=== PATIENT | male | born 1955 | race Asian ===

== ENCOUNTER 2016-11-07 11:17 | Outpatient (CLI) | payer OTHER ==
[~2016-11-07 11:17] MED LIST: ASA LOW DOSE81 MG PO; CARV25TA PO; CIPRO500 MG PO; CLOP75TA2 PO; DICY20TA34 PO; FURO20TA67 PO; HYDRALAZINE50 MG PO; IMDUR60 MG PO; LISI20TA11 PO; NEXIUM40 M1 PO; NITROSTAT0.4 MG; PANT40TA PO; PRAVACHOL80 MG PO; ROSU10TA PO; ZANTAC 75 PO
[2016-11-07 12:46] LABS: POTASSIUM 4.2 mmol/L (3.6-5.2)
== END 2016-11-07 20:05 | disposition home or self-care (01) ==
LOC: LABW 11:17
PROVIDERS: Internal Medicine Cardiovascular Disease
DX: I42.8 Other cardiomyopathies (principal); Z09 Encounter for follow-up examination after completed treatment for conditions other than malignant neoplasm
CPT/HCPCS: 36415; 80048

== ENCOUNTER 2017-05-29 00:37 | Emergency (ER) | payer OTHER ==
[~2017-05-29] VITALS: Ht 182.9 cm; Wt 111.1 kg
[2017-05-29] MEDS ORDERED: FURO40TA93 PO (01:05)
[2017-05-29] MEDS ORDERED: LOSA50TA PO (01:06)
[2017-05-29] MEDS ORDERED: SPIRONOLACT25 MG PO (01:06)
[2017-05-29] MEDS ORDERED: TAMS0.4C PO (01:06)
[2017-05-29] MEDS ORDERED: CILOSTAZOL PO (01:08)
[2017-05-29 01:15] LABS: PLATELET COUNT 196 K/uL (142-355)
[2017-05-29 02:04] LABS: PARTIAL THROMBOPLASTIN TIME 23.6 SECONDS (24.5-33.6)
[2017-05-29 02:23] LABS: POTASSIUM 4.6 mmol/L (3.6-5.2); SODIUM 134 mmol/L (136-145)
[2017-05-29 02:51] VITALS: BP 132/70; TEMP 97.9
== END 2017-05-29 02:50 | disposition home or self-care (01) ==
LOC: ED 00:37
DX: R07.89 Other chest pain (principal)
CPT/HCPCS: 36415; 80053; 82550; 82553; 84484; 85027; 85610; 85730; 93005; 96374; 99284; J1885

== ENCOUNTER 2017-06-28 11:00 | Outpatient (CLI) | payer OTHER ==
[~2017-06-28 11:00] MED LIST changes: +CILOSTAZOL PO; +FURO40TA93 PO; +LOSA50TA PO; +SPIRONOLACT25 MG PO; +TAMS0.4C PO
[2017-06-28 12:24] LABS: PLATELET COUNT 207 K/uL (142-355)
[2017-06-28 12:56] LABS: POTASSIUM 4.2 mmol/L (3.6-5.2)
== END 2017-06-28 12:00 | disposition home or self-care (01) ==
LOC: LABW 11:00
PROVIDERS: Internal Medicine
DX: I10 Essential (primary) hypertension (principal); I50.22 Chronic systolic (congestive) heart failure
CPT/HCPCS: 36415; 80053; 80061; 81000; 83880; 84443; 85027

== ENCOUNTER 2017-08-16 11:01 | Outpatient (CLI) | payer OTHER ==
[2017-08-16 12:19] LABS: PLATELET COUNT 202 K/uL (142-355)
== END 2017-08-16 18:59 | disposition home or self-care (01) ==
LOC: LABW 11:01
PROVIDERS: Internal Medicine Nephrology
DX: R94.4 Abnormal results of kidney function studies (principal)
CPT/HCPCS: 36415; 81000; 82570; 83970; 84155; 84165; 84166; 85027

== ENCOUNTER 2017-09-05 08:12 | Outpatient (CLI) | payer OTHER ==
[2017-09-05 08:37] LABS: POTASSIUM 4.1 mmol/L (3.6-5.2)
== END 2017-09-05 19:07 | disposition home or self-care (01) ==
LOC: LABW 08:12 → US 08:12 → LABW 19:07
PROVIDERS: Internal Medicine Nephrology
DX: R94.4 Abnormal results of kidney function studies (principal)
CPT/HCPCS: 36415; 80069

== ENCOUNTER 2017-09-20 11:56 | Outpatient (CLI) | payer OTHER | END 2017-09-20 13:00 | disposition home or self-care (01) | LOC: RAD 11:56 | DX: M25.532 Pain in left wrist (principal) ==

== ENCOUNTER 2017-10-04 15:57 | Outpatient (CLI) | payer OTHER | END 2017-10-04 19:02 | disposition home or self-care (01) | LOC: RESP 15:57 | DX: G56.02 Carpal tunnel syndrome, left upper limb (principal); G56.22 Lesion of ulnar nerve, left upper limb | CPT/HCPCS: 95909 ==

== ENCOUNTER 2017-11-14 11:04 | Outpatient (CLI) | payer OTHER ==
[2017-11-14 11:29] LABS: PLATELET COUNT 198 K/uL (142-355)
[2017-11-14 11:35] LABS: POTASSIUM 3.8 mmol/L (3.6-5.2)
== END 2017-11-14 20:06 | disposition home or self-care (01) ==
LOC: LABW 11:04
PROVIDERS: Internal Medicine Nephrology
DX: N18.3 Chronic kidney disease, stage 3 (moderate) (principal)
CPT/HCPCS: 36415; 80069; 82570; 83970; 84155; 85027

== ENCOUNTER 2018-04-16 11:11 | Outpatient (CLI) | payer OTHER | END 2018-04-16 20:23 | disposition home or self-care (01) | LOC: LABW 11:11 | PROVIDERS: Internal Medicine Cardiovascular Disease | DX: E78.4 Other hyperlipidemia (principal); I25.119 Atherosclerotic heart disease of native coronary artery with unspecified angina pectoris | CPT/HCPCS: 36415; 80061; 80076 ==

== ENCOUNTER 2018-05-30 10:16 | Outpatient (CLI) | payer OTHER ==
[2018-05-30 10:48] LABS: POTASSIUM 3.8 mmol/L (3.6-5.2)
[2018-05-30 11:06] LABS: PLATELET COUNT 207 K/uL (142-355)
== END 2018-05-30 19:27 | disposition home or self-care (01) ==
LOC: LABW 10:16
PROVIDERS: Internal Medicine Nephrology
DX: N18.3 Chronic kidney disease, stage 3 (moderate) (principal)
CPT/HCPCS: 36415; 80069; 82570; 83970; 84155; 85027

== ENCOUNTER 2018-11-12 10:35 | Outpatient (CLI) | payer OTHER ==
[2018-11-12 11:18] LABS: PLATELET COUNT 199 K/uL (142-355)
[2018-11-12 11:23] LABS: POTASSIUM 3.9 mmol/L (3.6-5.2)
== END 2018-11-12 20:53 | disposition home or self-care (01) ==
LOC: LABW 10:35
PROVIDERS: Internal Medicine Nephrology
DX: N18.3 Chronic kidney disease, stage 3 (moderate) (principal)
CPT/HCPCS: 36415; 80069; 82570; 83970; 84155; 85027

== ENCOUNTER 2019-05-14 09:38 | Outpatient (CLI) | payer OTHER ==
[2019-05-14 10:41] LABS: POTASSIUM 4.2 mmol/L (3.6-5.2)
[2019-05-14 13:02] LABS: PLATELET COUNT 188 K/uL (142-355)
== END 2019-05-14 23:15 | disposition home or self-care (01) ==
LOC: LABW 09:38
PROVIDERS: Internal Medicine Nephrology
DX: N18.3 Chronic kidney disease, stage 3 (moderate) (principal)
CPT/HCPCS: 36415; 80069; 82570; 83970; 84155; 85027

== ENCOUNTER 2019-11-18 09:22 | Outpatient (CLI) | payer OTHER ==
[2019-11-18 09:54] LABS: PLATELET COUNT 150 K/uL (142-355)
[2019-11-18 10:04] LABS: POTASSIUM 4.5 mmol/L (3.6-5.2)
== END 2019-11-18 19:04 | disposition home or self-care (01) ==
LOC: LABW 09:22
PROVIDERS: Internal Medicine Nephrology
DX: N18.3 Chronic kidney disease, stage 3 (moderate) (principal)
CPT/HCPCS: 36415; 80069; 82570; 84155; 85027

== ENCOUNTER 2019-12-17 10:54 | Outpatient (CLI) | payer OTHER ==
[2019-12-17 11:21] LABS: POTASSIUM 4.2 mmol/L (3.6-5.2)
== END 2019-12-17 19:18 | disposition home or self-care (01) ==
LOC: LABW 10:54
PROVIDERS: Internal Medicine Cardiovascular Disease
DX: E78.49 Other hyperlipidemia (principal); I25.119 Atherosclerotic heart disease of native coronary artery with unspecified angina pectoris; Z09 Encounter for follow-up examination after completed treatment for conditions other than malignant neoplasm
CPT/HCPCS: 36415; 80048; 80061; 80076

== ENCOUNTER 2020-05-13 09:39 | Outpatient (CLI) | payer OTHER ==
[2020-05-13 09:58] LABS: PLATELET COUNT 139 K/uL (142-355)
[2020-05-13 10:37] LABS: POTASSIUM 4.1 mmol/L (3.6-5.2)
== END 2020-05-13 19:43 | disposition home or self-care (01) ==
LOC: LABW 09:39
PROVIDERS: Internal Medicine Nephrology
DX: N18.3 Chronic kidney disease, stage 3 (moderate) (principal)
CPT/HCPCS: 36415; 80069; 82570; 83970; 84155; 85027

== ENCOUNTER 2020-09-15 10:15 | Outpatient (CLI) | payer OTHER ==
[2020-09-15 10:58] LABS: PLATELET COUNT 147 K/uL (142-355)
[2020-09-15 11:14] LABS: POTASSIUM 4.6 mmol/L (3.6-5.2)
== END 2020-09-15 19:56 | disposition home or self-care (01) ==
LOC: LABW 10:15
PROVIDERS: ATTEND Internal Medicine
DX: I12.9 Hypertensive chronic kidney disease with stage 1 through stage 4 chronic kidney disease, or unspecified chronic kidney disease (principal); N18.30 Chronic kidney disease, stage 3 unspecified; I25.10 Atherosclerotic heart disease of native coronary artery without angina pectoris; I42.0 Dilated cardiomyopathy
CPT/HCPCS: 36415; 80053; 80061; 81000; 83880; 84439; 84443; 85027

== ENCOUNTER 2020-11-27 08:59 | Outpatient (CLI) | payer OTHER ==
[2020-11-27 09:47] LABS: POTASSIUM 4.6 mmol/L (3.6-5.2)
[2020-11-27 09:58] LABS: PLATELET COUNT 153 K/uL (142-355)
== END 2020-11-27 19:32 | disposition home or self-care (01) ==
LOC: LABW 08:59
PROVIDERS: ATTEND Internal Medicine Cardiovascular Disease
DX: E78.49 Other hyperlipidemia (principal); I25.119 Atherosclerotic heart disease of native coronary artery with unspecified angina pectoris; Z09 Encounter for follow-up examination after completed treatment for conditions other than malignant neoplasm; N18.30 Chronic kidney disease, stage 3 unspecified
CPT/HCPCS: 36415; 80048; 80061; 80076; 82570; 84100; 84155; 85008; 85027

== ENCOUNTER 2021-03-25 10:48 | Outpatient (CLI) | payer OTHER | END 2021-03-25 23:55 | disposition home or self-care (01) | LOC: RAD 10:48 | PROVIDERS: ATTEND Internal Medicine | DX: M54.2 Cervicalgia (principal) ==

== ENCOUNTER 2021-03-26 09:28 | Outpatient (CLI) | payer OTHER ==
[2021-04-09 14:12] LABS: PLATELET COUNT 137 K/uL (142-355)
== END 2021-03-26 16:00 | disposition home or self-care (01) ==
LOC: LABW 09:28
PROVIDERS: ATTEND Internal Medicine
DX: I10 Essential (primary) hypertension (principal); I25.10 Atherosclerotic heart disease of native coronary artery without angina pectoris; I42.0 Dilated cardiomyopathy; F41.8 Other specified anxiety disorders
CPT/HCPCS: 80053; 80061; 81000; 83880; 84439; 84443; 85027

== ENCOUNTER 2021-05-11 09:11 | Outpatient (CLI) | payer OTHER ==
[2021-05-11 10:23] LABS: PLATELET COUNT 143 K/uL (142-355)
== END 2021-05-11 19:19 | disposition home or self-care (01) ==
LOC: LABW 09:11
PROVIDERS: ATTEND Internal Medicine Nephrology
DX: N18.31 Chronic kidney disease, stage 3a (principal)
CPT/HCPCS: 36415; 80069; 82570; 83970; 84155; 85027

== ENCOUNTER 2021-10-27 09:58 | Outpatient (CLI) | payer OTHER | END 2021-10-27 18:58 | disposition home or self-care (01) | LOC: LABW 09:58 | PROVIDERS: ATTEND Internal Medicine Cardiovascular Disease | DX: E78.49 Other hyperlipidemia (principal); I25.119 Atherosclerotic heart disease of native coronary artery with unspecified angina pectoris; Z09 Encounter for follow-up examination after completed treatment for conditions other than malignant neoplasm | CPT/HCPCS: 36415; 80061; 80076 ==

== ENCOUNTER 2021-11-10 10:37 | Outpatient (CLI) | payer OTHER ==
[2021-11-10 11:05] LABS: PLATELET COUNT 157 K/uL (142-355)
== END 2021-11-10 19:37 | disposition home or self-care (01) ==
LOC: LABW 10:37
PROVIDERS: ATTEND Internal Medicine Nephrology
DX: N18.31 Chronic kidney disease, stage 3a (principal)
CPT/HCPCS: 36415; 80069; 82570; 84155; 85027

== ENCOUNTER 2021-12-20 14:39 | Outpatient (CLI) | payer OTHER ==
[2021-12-20 14:51] LABS: PLATELET COUNT 161 K/uL (142-355)
[2021-12-20 15:10] LABS: POTASSIUM 4.4 mmol/L (3.6-5.2)
== END 2021-12-20 20:14 | disposition home or self-care (01) ==
LOC: LAB 14:39
PROVIDERS: ATTEND Internal Medicine
DX: I10 Essential (primary) hypertension (principal)
CPT/HCPCS: 80053; 80061; 81000; 84439; 85027

== ENCOUNTER 2022-04-14 10:17 | Outpatient (CLI) | payer OTHER ==
[2022-04-14 10:46] LABS: PLATELET COUNT 173 K/uL (142-355)
== END 2022-04-14 19:01 | disposition home or self-care (01) ==
LOC: LABW 10:17
PROVIDERS: ATTEND Internal Medicine Nephrology
DX: N18.31 Chronic kidney disease, stage 3a (principal)
CPT/HCPCS: 36415; 80069; 82570; 83970; 84156; 85027

== ENCOUNTER 2022-05-20 09:55 | Outpatient (CLI) | payer OTHER | END 2022-05-20 18:57 | disposition home or self-care (01) | LOC: LABW 09:55 | PROVIDERS: ATTEND Internal Medicine Cardiovascular Disease | DX: E78.49 Other hyperlipidemia (principal); I25.119 Atherosclerotic heart disease of native coronary artery with unspecified angina pectoris; Z09 Encounter for follow-up examination after completed treatment for conditions other than malignant neoplasm | CPT/HCPCS: 36415; 80061; 80076 ==

== ENCOUNTER 2022-08-10 17:45 | Outpatient (CLI) | payer OTHER ==
[2022-08-10 17:56] LABS: PLATELET COUNT 175 K/uL (142-355)
[2022-08-10 18:24] LABS: POTASSIUM 4.3 mmol/L (3.6-5.2)
== END 2022-08-10 20:52 | disposition home or self-care (01) ==
LOC: LAB 17:45
PROVIDERS: ATTEND Internal Medicine
DX: I10 Essential (primary) hypertension (principal)
CPT/HCPCS: 80053; 80061; 83880; 84439; 84443; 85027

== ENCOUNTER 2022-10-21 10:10 | Outpatient (CLI) | payer OTHER ==
[2022-10-21 10:40] LABS: PLATELET COUNT 188 K/uL (142-355)
[2022-10-21 10:49] LABS: POTASSIUM 4.1 mmol/L (3.6-5.2)
== END 2022-10-21 19:09 | disposition home or self-care (01) ==
LOC: LABW 10:10
PROVIDERS: ATTEND Internal Medicine Nephrology
DX: I12.9 Hypertensive chronic kidney disease with stage 1 through stage 4 chronic kidney disease, or unspecified chronic kidney disease (principal); N18.31 Chronic kidney disease, stage 3a
CPT/HCPCS: 36415; 80069; 82570; 83970; 84156; 85027

== ENCOUNTER 2023-01-13 10:12 | Outpatient (CLI) | payer OTHER ==
[2023-01-13 10:32] LABS: PLATELET COUNT 178 K/uL (142-355)
[2023-01-13 10:57] LABS: POTASSIUM 4.1 mmol/L (3.6-5.2)
== END 2023-01-13 19:41 | disposition home or self-care (01) ==
LOC: LABW 10:12
PROVIDERS: ATTEND Internal Medicine Cardiovascular Disease
DX: E78.49 Other hyperlipidemia (principal); I25.119 Atherosclerotic heart disease of native coronary artery with unspecified angina pectoris; Z09 Encounter for follow-up examination after completed treatment for conditions other than malignant neoplasm; I10 Essential (primary) hypertension; I42.0 Dilated cardiomyopathy; Z12.5 Encounter for screening for malignant neoplasm of prostate; N40.0 Benign prostatic hyperplasia without lower urinary tract symptoms
CPT/HCPCS: 36415; 80053; 80061; 81002; 82248; 84153; 84439; 84443; 85027

== ENCOUNTER 2023-05-04 08:41 | Outpatient (CLI) | payer OTHER | END 2023-05-04 19:47 | disposition home or self-care (01) | LOC: US 08:41 | PROVIDERS: ATTEND Specialist | DX: N28.89 Other specified disorders of kidney and ureter (principal) ==